=== PATIENT | male | born 1975 | race Caucasian/White ===

== ENCOUNTER 2016-05-24 05:35 | Observation (INO) | payer OTHER ==
[~2016-05-24] VITALS: Ht 190.5 cm; Wt 176.4 kg
[~2016-05-24 05:35] MED LIST: OXYC-522 PO
[2016-05-24] MEDS ORDERED: RINGERS SOLUTION,LACTATED 1,000 ML IV ONE ×2 (05:50→06:00)
[2016-05-24] MEDS ORDERED: CeFAZolin 2 GM/DEXTROSE 50 ML IV ONE ×2 (05:50→07:00)
[2016-05-24] MEDS ORDERED: GELATIN SPONGE,ABSORBABLE 100 MM TP ONE (07:11)
[2016-05-24] MEDS ORDERED: SODIUM CHLORIDE 0.9% 10 ML ONE (07:11)
[2016-05-24] MEDS ORDERED: BACITRACIN 50,000 UNITS/VIAL ONE (07:12)
[2016-05-24] MEDS ORDERED: THROMBIN, BOVINE 20000 UNITS/VIAL POWDER TP ONE (07:12)
[2016-05-24] MEDS ORDERED: BUPIVACAINE HCL/PF 0.5% 30 ML VIAL ONE (07:17)
[2016-05-24] MEDS ORDERED: BUPIVACAINE 0.25%/EPI 1:200,000/PF 10 ML VIAL ONE ×3 (07:39→08:17)
[2016-05-24] MEDS: BUPIVACAINE HCL/PF 0.5% 30 ML VIAL ONE ×2 (08:49→08:59)
[2016-05-24] MEDS: BUPIVACAINE LIPOSOME/PF 1.3%-13.3MG/ML SUSPENSION 20 ML VIAL INJ ONE ×2 (08:49→08:59)
[2016-05-24] MEDS ORDERED: FentaNYL CITRATE-PF 100 MCG/2 ML VIAL IVP PRN (09:00)
[2016-05-24] MEDS ORDERED: OXYGEN THERAPY IH SCH (09:00)
[2016-05-24] MEDS ORDERED: MEPERIDINE-PF 25 MG/ML SYRINGE IVP PRN (09:00)
[2016-05-24] MEDS ORDERED: HYDROmorphone 2 MG/ML SYRINGE IVP PRN (09:00)
[2016-05-24 10:59] VITALS: BP 142/83
[2016-05-24] MEDS ORDERED: SUCCINYLCHOLINE CHLORIDE 20 MG/ML 10 ML VIAL IVP ONE (14:52)
[2016-05-24] MEDS ORDERED: NEOSTIGMINE METHYLSULFATE 1 MG/ML 10 ML VIAL IVP ONE (14:52)
[2016-05-24] MEDS ORDERED: MIDAZOLAM HCL 2 MG/2 ML VIAL IVP ONE (14:52)
[2016-05-24] MEDS ORDERED: ONDANSETRON HCL 4 MG/2 ML VIAL IVP ONE (14:52)
[2016-05-24] MEDS ORDERED: ROCURONIUM BROMIDE 10 MG/ML 5 ML VIAL IVP ONE (14:52)
[2016-05-24] MEDS ORDERED: FentaNYL CITRATE-PF 250 MCG/5 ML VIAL IVP ONE (14:52)
[2016-05-24] MEDS ORDERED: PROPOFOL 1% 20 ML VIAL IVP ONE (14:52)
[2016-05-24] MEDS ORDERED: DEXAMETHASONE SOD PHOS 4 MG/ML VIAL IVP ONE (14:52)
[2016-05-24] MEDS ORDERED: GLYCOPYRROLATE 0.2 MG/ML VIAL IM ONE (14:52)
[2016-05-24] MEDS ORDERED: HYDROmorphone 2 MG/ML SYRINGE IVP ONE (14:52)
== END 2016-05-24 14:53 | disposition home or self-care (01) ==
LOC: INTOOBSV 05:35 → 4E 05:35
PROVIDERS: ADMIT Neurological Surgery; ATTEND Neurological Surgery
DX: M51.16 Intervertebral disc disorders with radiculopathy, lumbar region (principal); M48.06 Spinal stenosis, lumbar region; M54.41 Lumbago with sciatica, right side; E66.01 Morbid (severe) obesity due to excess calories; Z68.41 Body mass index [BMI] 40.0-44.9, adult
CPT/HCPCS: 36415; 63047; 63048; 86850; 86900; 86901; 87081; C9290; G0378; J0330; J0690; J1030; J1100; J1170; J2250; J2405; J2704; J3010; J3490 ×5; J7120; X7700; Z7610 ×3